=== PATIENT | male | born 1960 | race Caucasian/White ===

== ENCOUNTER → 2021-07-12 15:15 | Outpatient (BNVA) | payer BC, SELFPAY | PROVIDERS: Visit Provider Family Medicine | DX: M10.9 Gout, unspecified (principal); L98.9 Disorder of the skin and subcutaneous tissue, unspecified | CPT/HCPCS: 80053; 84550; 85025 ==

== ENCOUNTER 2022-12-03 23:49 | Emergency (ER) | payer BC, SELFPAY ==
[2022-12-03 23:52] VITALS: BP 178/95; PULSE 79; RESP 22; TEMP 36.8; O2SAT 94; BMI 34.2
--- NOTE | 2022-12-04 00:01 | CTR_ITS ---
PROCEDURE INFORMATION: Exam: CT Head Without Contrast Exam date and time: 12/04/2022 12:10 AM Age: 62 years old Clinical indication: Stroke-like symptoms; Dizziness/giddiness; Lt upper extremity weakness; Additional info: Severe dizziness with left upper ext weakness. Unknown last well time. TECHNIQUE: Imaging protocol: Computed tomography of the head without contrast. Radiation optimization: All CT scans at this facility use at least one of these dose optimization techniques: automated exposure control; mA and/or kV adjustment per patient size (includes targeted exams where dose is matched to clinical indication); or iterative reconstruction. Other technique: STROKE PROTOCOL was implemented. REPORTING DATA: Count of CT and Cardiac NM exams in prior 12 months: This patient has received 0 known CTs and 0 known cardiac nuclear medicine studies in the 12 months prior to the current study. COMPARISON: No relevant prior studies available. RADIATION DOSE METRICS: Total DLP (mGy-cm): 1138.88 FINDINGS: Brain: No focal hemorrhage or midline shift is identified. Right occipital CVA measures up to about 5.4 cm. Left cerebellar CVA measures up to about 5.1 cm. The right globus pallidus area near the internal capsule also contains a hypodense infarct measuring about 2.9 cm. The ventricles and parenchyma show moderate atrophy and chronic bicerebral white matter ischemic change. Cerebral ventricles: No ventriculomegaly or evidence of hydrocephalus. Paranasal sinuses: No evidence of acute sinusitis. Mastoid air cells: Visualized mastoid air cells are well aerated. Bones/joints: No displaced skull fracture is noted. Soft tissues: Unremarkable. Vasculature: Diffuse vascular calcifications are present. CT/CT head thrombolytic [id number] IMPRESSION: 1. Right basal ganglia area/internal capsule acute or subacute stroke. 2. Acute or subacute posterior circulation left cerebellar and right occipital strokes. No focal acute or dense hemorrhage. Advise MRI. 3. Moderate age-related changes. ASSESSMENT: ASPECTS ([place] Stroke Program Early CT Score) is 8.
--- NOTE | 2022-12-04 00:01 | CTR_ITS ---
PROCEDURE INFORMATION: Exam: CTA Head With Contrast, Arteriography Exam date and time: 12/04/2022 12:15 AM Age: 62 years old Clinical indication: Stroke-like symptoms; Dizziness/giddiness; Lt upper extremity weakness TECHNIQUE: Imaging protocol: Computed tomographic angiography of the head with contrast. Exam focused on the arteries. 3D rendering (Not supervised by radiologist): MIP and/or 3D reconstructed images were created by the technologist. Radiation optimization: All CT scans at this facility use at least one of these dose optimization techniques: automated exposure control; mA and/or kV adjustment per patient size (includes targeted exams where dose is matched to clinical indication); or iterative reconstruction. Contrast material: OMNI 350; Contrast volume: 100 ml; Contrast route: INTRAVENOUS (IV); REPORTING DATA: Count of CT and Cardiac NM exams in prior 12 months: This patient has received 0 known CTs and 0 known cardiac nuclear medicine studies in the 12 months prior to the current study. COMPARISON: CT head thrombolytic [id number] 12/04/2022 12:10 AM RADIATION DOSE METRICS: Total DLP (mGy-cm): 1138.88 FINDINGS: ANTERIOR CIRCULATION: Right internal carotid artery: Intracranial segment is patent with no significant stenosis. No aneurysm. Right middle cerebral artery: No occlusion or significant stenosis. No aneurysm. Right anterior cerebral artery: No occlusion or significant stenosis. No aneurysm. Left internal carotid artery: Intracranial segment is patent with no significant stenosis. No aneurysm. Left middle cerebral artery: No occlusion or significant stenosis. No aneurysm. Left anterior cerebral artery: No occlusion or significant stenosis. No aneurysm. POSTERIOR CIRCULATION: Right vertebral artery: No occlusion or significant stenosis. No aneurysm. Left vertebral artery: Is patent distally, which may be due to retrograde flow or recollateralized flow. See below neck CTA report. Basilar artery: No occlusion or significant stenosis. No aneurysm. The AICA, PICA, and SCA vessels are not well seen. Right posterior cerebral artery: Occlusion of right P2 segment. Left posterior cerebral artery: No occlusion or significant stenosis. No aneurysm. Brain: No focal hemorrhage or midline shift identified. Cerebral ventricles: No evidence of ventriculomegaly or hydrocephalus. The ventricles seem age-appropriate. Bones/joints: Unremarkable. No acute fracture. Soft tissues: Unremarkable. PROCEDURE INFORMATION: Exam: CTA Neck With Contrast Exam date and time: 12/04/2022 12:15 AM Age: 62 years old Clinical indication: Stroke-like symptoms; Dizziness/giddiness; Lt upper extremity weakness TECHNIQUE: Imaging protocol: Computed tomographic angiography of the neck with contrast. 3D rendering (Not supervised by radiologist): MIP and/or 3D reconstructed images were created by the technologist. Radiation optimization: All CT scans at this facility use at least one of these dose optimization techniques: automated exposure control; mA and/or kV adjustment per patient size (includes targeted exams where dose is matched to clinical indication); or iterative reconstruction. Contrast material: OMNI 350; Contrast volume: 100 ml; Contrast route: INTRAVENOUS (IV); REPORTING DATA: Count of CT and Cardiac NM exams in prior 12 months: This patient has received 0 known CTs and 0 known cardiac nuclear medicine studies in the 12 months prior to the current study. COMPARISON: CT head thrombolytic [id number] 12/04/2022 12:10 AM RADIATION DOSE METRICS: Total DLP (mGy-cm): 1138.88 FINDINGS: Right common carotid artery: No stenosis. No dissection or occlusion. Right internal carotid artery: No stenosis of the extracranial segment. No dissection or occlusion. Right external carotid artery: No occlusion or high-grade stenosis identififed. Left common carotid artery: No stenosis. No dissection or occlusion. Left internal carotid artery: No stenosis of the extracranial segment. No dissection or occlusion. Left external carotid artery: No occlusion or high-grade stenosis identififed. Right vertebral artery: The right vertebral artery is patent in the cervical region. Left vertebral artery: There is no flow seen along most of left vertebral artery. Thyroid: Few hypodense thyroid nodules measure up to about 1.3 cm. Soft tissues: No significant soft tissue swelling or other acute finding noted. Bones/joints: No acute fracture. The C1 posterior arch shows congenital nonunion. Mild diffuse cervical degenerative change. CT/CT angio headneck* [id number] IMPRESSION: 1. 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 2. The left vertebral artery is patent distally, which may be due to retrograde flow or recollateralized flow. Along its cervical course, it appears occluded. See below neck CTA report. IMPRESSION: 1. Concern for left vertebral artery diffuse occlusion. 2. Otherwise, no acute neck arterial finding visualized. 3. A few chronic findings above. 4. Call to provider has been initiated. COMMENTS: Consistent with the [employer]'s Incidental Findings Committee white paper (J Am Karian Radiol 2015): In patients aged 35 years and older with an incidental thyroid nodule equal to or greater than 1.[address], MRI or extrathyroidal US, further evaluation with dedicated thyroid US is recommended for patients with normal life expectancy and without comorbidities. For smaller nodules without suspicious features, no further evaluation or follow up is recommended. REFERENCES: NASCET CRITERIA. The degree of stenosis in the cervical segment of the internal carotid artery is based on NASCET criteria. Normal is no stenosis. Mild is less than 50% stenosis. Moderate is 50-69% stenosis. Severe is 70% to 99% stenosis. Total occlusion is no detectable patent lumen.
--- NOTE | 2022-12-04 00:01 | ECG_ITS ---
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 Measurements Intervals [place] Rate: 89 P: 46 NM: 132 QRS: -4 QRSD: 105 T: 74 QT: 356 QTc: 434 Interpretive Statements SINUS RHYTHM POSSIBLE LEFT ATRIAL ENLARGEMENT [-0.1mV P-WAVE IN V1/V2] NONSPECIFIC T-WAVE ABNORMALITY Compared to ECG 12/04/2022 00:26:05 No significant changes Electronically Signed On 12-04-2022 21:12:18 CDT by Fabiola Oh M.D. [email or web address] system [id number]
[2022-12-04] MEDS: iohexol 350 mg/mL 500 mL Btl (per mL) IV (00:11)
[2022-12-04 00:13] LABS: Glucose Point of Care 117 mg/dL (70-110)
[2022-12-04 00:15] LABS: Basophils % 0.1 %; Hematocrit 52.3 % (42.0-52.0); Hemoglobin 17.7 g/dL (11.7-16.6); Lymphocytes # 0.9 10^3/uL (0.8-4.8); Lymphocytes % 4.9 %; Mean Corpuscular HGB Conc 33.8 g/dL (30.0-36.0); Mean Corpuscular Hemoglobin 29.7 pg (28.0-34.0); Mean Corpuscular Volume 87.9 fl (80-94); Mean Platelet Volume 9.5 fL (7.4-10.4); Monocytes # 1.2 10^3/uL (0.2-0.9); Monocytes % 6.5 %; Neutrophils # 16.88 10^3/uL (1.8-7.7); Nucleated Red Blood Cells % 0 %; Platelet Count 218 10^3/cmm (130-400); Red Blood Count 5.95 10^6/uL (4.1-5.3); White Blood Count 19.2 10^3/uL (4.0-10.0)
--- NOTE | 2022-12-04 00:26 | ECG_ITS ---
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 Measurements Intervals [place] Rate: 89 P: 53 CT: 127 QRS: -1 QRSD: 99 T: 75 QT: 362 QTc: 441 Interpretive Statements SINUS RHYTHM POSSIBLE LEFT ATRIAL ENLARGEMENT [-0.1mV P-WAVE IN V1/V2] NONSPECIFIC T-WAVE ABNORMALITY No previous ECG available for comparison Electronically Signed On 12-04-2022 21:12:28 CDT by Fabiola Oh M.D. [id number]
[2022-12-04 00:28] VITALS: BP 173/91; PULSE 88; RESP 20; O2SAT 93
[2022-12-04 00:28] LABS: INR 1.08 (0.8-1.2)
[2022-12-04 00:30] LABS: Partial Thromboplastin Time 21.9 SECONDS (23.9-36.7)
[2022-12-04] MEDS: ondansetron 2 mg/ML SDV 2 mL 4 MG IVP (00:37)
[2022-12-04 00:41] LABS: Troponin(5th) Baseline 9 ng/L (0-15)
[2022-12-04 00:42] LABS: Alanine Aminotransferase 27 U/L (0-41); Albumin Level 4.2 g/dL (3.5-5.2); Alkaline Phosphatase 59 U/L (40-130); Anion Gap 17.2 (5-19); Aspartate Amino Transferase 22 U/L (0-40); Blood Urea Nitrogen 17 mg/dL (8-23); Calcium 9.4 mg/dL (8.5-10.5); Carbon Dioxide 26 mmol/L (22-29); Chloride 96 mmol/L (98-107); Globulin 3.3 g/dL (1.3-4.6); Glomerular Filtration Rate 86.1 mL/min (90-130); Glucose 131 mg/dL (65-115); Osmolality Calculated 283 mOsm/kg (285-295); Potassium 4.2 mmol/L (3.5-5.1); Sodium 135 mmol/L (136-145); Total Bilirubin 0.7 mg/dL (0.15-1.2); Total Protein 7.5 g/dL (6.6-8.7)
--- NOTE | 2022-12-04 00:45 | ED_ITS ---
HPI - Neuro Symptoms/Deficit General: Chief Complaint: Neuro Symptoms/Deficit Stated Complaint: SEIZURE Time Seen by Provider: 12/03/22 23:53 Source: patient and EMS Mode of arrival: EMS Limitations: no limitations History of Present Illness: 62-year-old male who is here with EMS stated 3 PM today he started having left- sided weakness he states he has not been able to walk due to left-sided weakness he states has been very dizzy is felt like the room is been spinning. He denies any chest pain he has had some mild headaches. No vomiting or diarrhea Associated symptoms: Deny chest pain, headache(s), nausea or vomiting Review of Systems Const: Denies: fever(s), chills, body aches or change in appetite Eyes: Denies: blurry vision or eye discomfort ENMT: Denies: throat pain or dental pain Card: Denies: chest pain Resp: Denies: dyspnea GI: Denies: abdominal pain, nausea, vomiting or diarrhea : Denies: dysuria Musc: Denies: neck pain or back pain Skin/Breast: Denies: rash Neuro: Reports: numbness in extremities, weakness in extremities, lack of coordination, difficulty walking and dizziness; Denies: headache(s) PFSH ED PFSH: Medical History Gout Skin Lesion Ventral hernia Social History Smoking and tobacco status: never smoked Alcohol intake: current NIH stroke score NIHSS: Level Of Consciousness - 1a: 0 Level Of Consciousness Questions - 1b: Both Correct Level Of Consciousness Commands - 1c: Both Correct Best Gaze - 2: Partial Gaze Palsy Visual Moreno - 3: Complete Hemianopia Facial Palsy - 4: Normal Motor Arm Right - 5: No Drift Motor Arm Left - 5: Effort Against [place] Motor Leg Right - 6: No Drift Motor Leg Left - 6: Effort Against [place] Limb Ataxia - 7: Absent Sensory - 8: Mild To Moderate Loss Best Language - 9: No Aphasia Dysarthia - 10: Normal Extinction And Inattention - 11: 0 Score: Total Score: 8 Physical Exam Const: COMMON NORMALS: patient oriented x3 GENERAL APPEARANCE: ill appearing HENMT: COMMON NORMALS: normocephalic and atraumatic HEAD & SCALP: normocephalic and atraumatic Eye: COMMON NORMALS: Equal, round and reactive pupils present and EOMs intact bilaterally PUPIL: Yes Equal, round and reactive pupils present OTHER: Complete hemianopsia visual deficits to the left side of both eyes Neck/C-Spine: COMMON NORMALS: full ROM and supple Chest: COMMONS NORMALS: normal inspection of the chest and normal palpation of entire chest wall Resp: COMMON NORMALS: normal respiratory effort, No retractions, No use of accessory muscles and clear to auscultation bilaterally AUSCULTATION: clear to auscultation bilaterally Cardio: COMMON NORMALS: regular rate, regular rhythm and No murmurs present (Cardio) RATE: regular rate RHYTHM: regular rhythm GI: COMMON NORMALS: Normal to inspection, nondistended, normoactive bowel sounds present, Soft to palpation, non-tender and no masses PALPATION: Yes Soft to palpation Extremity: COMMON NORMALS: normal to inspection and full ROM Neuro: COMMON NORMALS: patient oriented x3 OTHER: Decreased sensation and strength to the left upper and lower extremity Psych: COMMON NORMALS: mental status grossly normal, Normal thought process present and cooperative THOUGHT PROCESS: Normal thought process present Skin: COMMON NORMALS: no rashes or lesions noted and no wounds GENERAL SKIN EXAM: no rashes or lesions noted Course Vital Signs: Vital signs: Vital Signs Temperature 98.2 F 12/03/22 23:52 Pulse Rate 79 12/03/22 23:52 Respiratory Rate 22 H 12/03/22 23:52 Blood Pressure 178/95 12/03/22 23:52 Pulse Oximetry 94 12/03/22 23:52 Oxygen Delivery Me thod Room Air 12/03/22 23:52 MDM - Neuro Symptoms/Deficit Medical Decision Making Patient presents here with a CVA. He does have a thrombus on his CTA. Patient had unknown downtime he had stated it was 3 PM room today but family states that he was acting abnormal the day before I have spoke to the neurologist at [facility] he did recommend transfer for further imaging to see if he is a thrombectomy candidate. He is not a tPA candidate due to timing Medical Records I reviewed the patient's medical records. Lab Data I reviewed the patient's lab results. 12/04/22 00:07 12/04/22 00:[address] 12/04/22 00:01 IMPRESSION: 1. Right basal ganglia area/internal capsule acute or subacute stroke. 2. Acute or subacute posterior circulation left cerebellar and right occipital strokes. No focal acute or dense hemorrhage. Advise MRI. 3. Moderate age-related changes. ASSESSMENT: ASPECTS ([place] Stroke Program Early CT Score) is 8. ADDENDUM: 12/04/22 0035 THIS REPORT CONTAINS FINDINGS THAT MAY BE CRITICAL TO PATIENT CARE. The findings were verbally communicated via telephone conference at 12:33 AM CDT on 12/04/2022 with FRENCH POOL. The findings were acknowledged and understood. Head/Neck CTA 12/04/22 00:01 IMPRESSION: 1. 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 2. The left vertebral artery is patent distally, which may be due to retrograde flow or recollateralized flow. Along its cervical course, it appears occluded. See below neck CTA report. IMPRESSION: 1. Concern for left vertebral artery diffuse occlusion. 2. Otherwise, no acute neck arterial finding visualized. 3. A few chronic findings above. 4. Call to provider has been initiated. COMMENTS: Consistent with the [employer]'s Incidental Findings Committee white paper (J Am Karina Radiol 2015): In patients aged 35 years and older with an incidental thyroid nodule equal to or greater than 1.[address], MRI or extrathyroidal US, further evaluation with dedicated thyroid US is recommended for patients with normal life expectancy and without comorbidities. For smaller nodules without suspicious features, no further evaluation or follow up is recommended. REFERENCES: NASCET CRITERIA. The degree of stenosis in the cervical segment of the internal carotid artery is based on NASCET criteria. Normal is no stenosis. Mild is less than 50% stenosis. Moderate is 50-69% stenosis. Severe is 70% to 99% stenosis. Total occlusion is no detectable patent lumen. ADDENDUM: 12/04/[address] Bowie has received reports with no concerns. Laboratory Results WBC 19.2 10^3/uL (4.0-10.0) H 12/04/22 00:07 RBC 5.95 10^6/uL (4.1-5.3) H 12/04/22 00:07 Hgb 17.7 g/dL (11.7-16.6) H 12/04/22 00:07 Hct 52.3 % (42.0-52.0) H 12/04/22 00:07 MCV 87.9 fl (80-94) 12/04/22 00:07 MCH 29.7 pg (28.0-34.0) 12/04/22 00:07 MCHC 33.8 g/dL (30.0-36.0) 12/04/22 00:07 RDW 14.0 % (12.1-15.1) 12/04/22 00:07 Plt Count 218 10^3/cmm (130-400) 12/04/22 00:07 MPV 9.5 fL (7.4-10.4) 12/04/22 00:07 Neut % (Auto) 88.0 % 12/04/22 00:07 Lymph % (Auto) 4.9 % 12/04/22 00:07 Karnes % (Auto) 6.5 % 12/04/22 00:07 Eos % (Auto) 0.0 % 12/04/22 00:07 Baso % (Auto) 0.1 % 12/04/22 00:07 Neut # (Auto) 16.88 10^3/uL (1.8-7.7) H 12/04/22 00:07 Lymph # (Auto) 0.9 10^3/uL (0.8-4.8) 12/04/22 00:07 Karnes # (Auto) 1.2 10^3/uL (0.2-0.9) H 12/04/22 00:07 Eos # (Auto) 0.0 10^3/uL (0.0-0.8) 12/04/22 00:07 Baso # (Auto) 0.0 10^3/uL (0.0-0.1) 12/04/22 00:07 Nucleated RBC % (auto) 0 % 12/04/22 00:07 Nucleated RBCs # 0.0 /100WBC 12/04/22 00:07 PT 14.30 SECONDS (12.1-14.9) 12/04/22 00:07 INR 1.08 (0.8-1.2) 12/04/22 00:07 APTT 21.9 SECONDS (23.9-36.7) L 12/04/22 00:07 Sodium 135 mmol/L (136-145) L 12/04/22 00:07 Potassium 4.2 mmol/L (3.5-5.1) 12/04/22 00:07 Chloride 96 mmol/L (98-107) L 12/04/22 00:07 Carbon Dioxide 26 mmol/L (22-29) 12/04/22 00:07 Anion Gap 17.2 (5-19) 12/04/22 00:07 BUN 17 mg/dL (8-23) 12/04/22 00:07 Creatinine 0.9 mg/dL (0.7-1.2) 12/04/22 00:07 GFR Calculation 86.1 mL/min (90-130) L 12/04/22 00:07 Glucose 131 mg/dL (65-115) H 12/04/22 00:07 POC Glucose 117 mg/dL (70-110) H 12/04/22 00:03 Calculated Osmolality 283 mOsm/kg (285-295) L 12/04/22 00:07 Calcium 9.4 mg/dL (8.5-10.5) 12/04/22 00:07 Total Bilirubin 0.7 mg/dL (0.15-1.2) 12/04/22 00:07 AST 22 U/L (0-40) 12/04/22 00:07 ALT 27 U/L (0-41) 12/04/22 00:07 Alkaline Phosphatase 59 U/L (40-130) 12/04/22 00:07 Troponin T Baseline 9 ng/L (0-15) 12/04/22 00:07 Total Protein 7.5 g/dL (6.6-8.7) 12/04/22 00:07 Albumin 4.2 g/dL (3.5-5.2) 12/04/22 00:07 Globulin 3.3 g/dL (1.3-4.6) 12/04/22 00:07 Critical Care Time Critical Care Time: Critical Care Time: Yes Total Critical Care Time: 40 Attestation: The high probability of a clinically significant, sudden or life threatening deterioration of the patient's cva system(s) required my full and direct attention, intervention and personal management. The critical care time is as shown. This time is in addition to time spent performing any reported procedures but includes the following: [x] Data and vital sign review and interpretation [x] Patient assessment, examination and intervention [x] Documentation [x] Medication orders and management Discharge Plan Discharge Patient Disposition: Xfer Short-Term Hosp Clinical Impression: Cerebrovascular accident Condition: Stable Prescriptions: No Action ibuprofen [IBU] 400 mg tablet 400 mg PO Q6H allopurinol 100 mg tablet 100 mg PO DAILY Qty: 90 0RF Coding Level of Care Code ED Collections Attorney for Tonio Al
[2022-12-04 01:00] VITALS: BP 182/90; PULSE 87; RESP 18; O2SAT 90
[2022-12-04] MEDS: aspirin 300 mg Supp PR (01:21)
[2022-12-04 01:22] LABS: Creatine Phosphokinase 234 U/L (39-308)
[2022-12-04 01:30] VITALS: BP 148/100; PULSE 92; RESP 16; O2SAT 95
[2022-12-04 01:36] LABS: Urine Appearance Clear (CLEAR); Urine Color Yellow (Yellow); pH Urine 6.5 (5-7)
[2022-12-04 01:37] LABS: Add Urine Microscopic? YES; Bilirubin Urine 1+ (Negative); Blood Urine Trace (Negative); Glucose Urine UA Norm (Normal); Ketones Urine 2+ (Negative); Leukocyte Esterase Urine Trace (Negative); Nitrate Urine Positive (Negative); Protein Urine 1+ (Negative); Urobilinogen Urine 1 mg/dL (Negative)
[2022-12-04 01:38] LABS: RBC Urine 0-4 /hpf (0-2); WBC Urine 0-4 /hpf (0-5)
[2022-12-04 01:39] LABS: Bacteria Urine TRACE /hpf; Squamous Epithelial Cell Urine 0-4 /hpf (0-5)
[2022-12-04 01:42] LABS: Amphetamines Screen Urine Negative (Negative); Barbiturates Screen Urine Negative (Negative); Benzodiazepines Screen Urine Negative (Negative); Cocaine Screen Urine Negative (Negative); Opiate Screen Urine Negative (Negative); PCP Screen Urine Negative (Negative); THC Screen Urine Negative (Negative)
[2022-12-04] MEDS: LORazepam 2 mg/mL INJ 1 mL 0.5 MG IVP ×2 (01:46→01:55)
== END 2022-12-04 02:10 | disposition short-term general hospital (02) ==
PROVIDERS: Emergency Provider Emergency Medicine
DX: I63.9 Cerebral infarction, unspecified (principal)
CPT/HCPCS: 36416; 51702; 70450; 70496; 70498; 80053; 80306; 81001; 82550; 82962; 84484; 85025; 85610; 85730; 93005; 96374; 96376; 99285; J2060; J2405; Q9967

== ENCOUNTER 2022-12-28 12:15 | Emergency (ER) | payer BC, SELFPAY ==
[2022-12-28 12:22] VITALS: BP 135/84; PULSE 76; RESP 18; TEMP 36.9; O2SAT 97; BMI 28.8
--- NOTE | 2022-12-28 12:50 | W.ED.WEAKNES ---
HPI - Weakness General: Chief complaint: Weakness Stated complaint: increased weakness Time Seen by Provider: 12/28/22 12:34 History of Present Illness: [facility] and felt weaker than normal. Patient states he normally gets this way when he is hungry after he eats he gets better. Patient ate some hamburger cracker this morning and to get little better but then started getting worse again. [facility] because he just recently had a stroke and went to [facility] for treatment. Patient states the weakness is having now is global weakness and not focal weakness. Patient denies any other concerns or considerations at this time. Review of Systems General: Reports: 10 or more systems reviewed and unremarkable except in HPI and below PFSH ED PFSH: Medical History Gout Skin Lesion Ventral hernia Social History Smoking and tobacco status: never smoked Alcohol intake: current Physical Exam Const: COMMON NORMALS: no acute distress, average body habitus, patient oriented x3, no limitations, healthy appearing, alert and well nourished HENMT: COMMON NORMALS: normocephalic, atraumatic, hearing grossly normal bilaterally, external ears normal, Normal external nose present and moist oral mucous membranes HEAD & SCALP: normocephalic and atraumatic NOSE: Normal external nose present EXTERNAL EAR: Yes external ears normal Eye: COMMON NORMALS: Equal, round and reactive pupils present, EOMs intact bilaterally, conjunctivae normal and no scleral icterus CONJUNCTIVA: Yes conjunctivae normal PUPIL: Yes Equal, round and reactive pupils present Neck/C-Spine: COMMON NORMALS: full ROM, no lymphadenopathy, supple, no meningeal signs, no JVD and Thyroid normal THYROID: Thyroid normal Chest: COMMONS NORMALS: normal inspection of the chest and normal palpation of entire chest wall Resp: COMMON NORMALS: normal respiratory effort, No retractions, No use of accessory muscles and clear to auscultation bilaterally AUSCULTATION: clear to auscultation bilaterally Cardio: COMMON NORMALS: no JVD, regular rate, regular rhythm, S1 normal heart sound present, S2 normal heart sound present, No gallops present (Cardio), No clicks present (Cardio), No murmurs present (Cardio) and No rub (Cardio) RATE: regular rate RHYTHM: regular rhythm HEART SOUNDS: S1 normal heart sound present and S2 normal heart sound present GI: COMMON NORMALS: Normal to inspection, nondistended, normoactive bowel sounds present, Soft to palpation, non-tender, No hepatosplenomegaly present and no masses PALPATION: Yes Soft to palpation and Yes No hepatosplenomegaly present : COMMON NORMALS: Yes no CVA tenderness BLADDER/KIDNEY EXAM: Yes no CVA tenderness Back/Pelvis: COMMON NORMALS: no CVA tenderness Neuro: COMMON NORMALS: patient oriented x3 SENSORIUM/ORIENTATION: Yes alert MENINGEAL SIGNS: Yes no meningeal signs Course Vital Signs: Vital signs: Vital Signs Temperature 98.4 F 12/28/22 12:22 Pulse Rate 76 12/28/22 12:22 Respiratory Rate 18 12/28/22 12:22 Blood Pressure 135/84 12/28/22 12:22 Pulse Oximetry 97 12/28/22 12:22 Oxygen Delivery Me thod Room Air 12/28/22 12:22 MDM - Weakness Medical Decision Making Patient presents to the ER with complaints of generalized weakness. States it happens when he does not eat very good. Patient stated this happened this morning and he ate some peanut butter and crackers and started get a little better but then got little worse. Patient was given p.o. butter and crackers in ER as well as a food tray which patient ate patient is feeling better now. Work which included blood and urine was obtained which is essentially benign. Since patient is feeling better this is more likely related to poor oral intake. Patient will be discharged home. Patient should eat 3 square meals a day along with snacks. Differential Diagnosis Unlikely acute myocardial infarction, anemia, hypoglycemia, hypothyroidism, rhabdomyolysis, sepsis or dehydration Medical Records I reviewed the patient's medical records. Lab Data I reviewed the patient's lab results. 12/28/22 12:53 12/28/22 12:53 Laboratory Results WBC 11.3 10^3/uL (4.0-10.0) H 12/28/22 12:53 RBC 5.56 10^6/uL (4.1-5.3) H 12/28/22 12:53 Hgb 16.3 g/dL (11.7-16.6) 12/28/22 12:53 Hct 49.3 % (42.0-52.0) 12/28/22 12:53 MCV 88.7 fl (80-94) 12/28/22 12:53 MCH 29.3 pg (28.0-34.0) 12/28/22 12:53 MCHC 33.1 g/dL (30.0-36.0) 12/28/22 12:53 RDW 13.0 % (12.1-15.1) 12/28/22 12:53 Plt Count 255 10^3/cmm (130-400) 12/28/22 12:53 MPV 8.8 fL (7.4-10.4) 12/28/22 12:53 Neut % (Auto) 70.3 % 12/28/22 12:53 Lymph % (Auto) 19.6 % 12/28/22 12:53 [place] % (Auto) 8.3 % 12/28/22 12:53 Eos % (Auto) 1.0 % 12/28/22 12:53 Baso % (Auto) 0.4 % 12/28/22 12:53 Neut # (Auto) 7.92 10^3/uL (1.8-7.7) H 12/28/22 12:53 Lymph # (Auto) 2.2 10^3/uL (0.8-4.8) 12/28/22 12:53 [place] # (Auto) 0.9 10^3/uL (0.2-0.9) 12/28/22 12:53 Eos # (Auto) 0.1 10^3/uL (0.0-0.8) 12/28/22 12:53 Baso # (Auto) 0.0 10^3/uL (0.0-0.1) 12/28/22 12:53 Nucleated RBC % (auto) 0 % 12/28/22 12:53 Nucleated RBCs # 0.0 /100WBC 12/28/22 12:53 Sodium 141 mmol/L (136-145) 12/28/22 12:53 Potassium 4.2 mmol/L (3.5-5.1) 12/28/22 12:53 Chloride 102 mmol/L (98-107) 12/28/22 12:53 Carbon Dioxide 28 mmol/L (22-29) 12/28/22 12:53 Anion Gap 15.2 (5-19) 12/28/22 12:53 BUN 15 mg/dL (8-23) 12/28/22 12:53 Creatinine 0.7 mg/dL (0.7-1.2) 12/28/22 12:53 GFR Calculation 115.0 mL/min (90-130) 12/28/22 12:53 Glucose 83 mg/dL (65-115) 12/28/22 12:53 Calculated Osmolality 292 mOsm/kg (285-295) 12/28/22 12:53 Calcium 9.3 mg/dL (8.5-10.5) 12/28/22 12:53 Total Bilirubin 0.8 mg/dL (0.15-1.2) 12/28/22 12:53 AST 30 U/L (0-40) 12/28/22 12:53 ALT 68 U/L (0-41) H 12/28/22 12:53 Alkaline Phosphatase 74 U/L (40-130) 12/28/22 12:53 Total Protein 6.6 g/dL (6.6-8.7) 12/28/22 12:53 Albumin 3.8 g/dL (3.5-5.2) 12/28/22 12:53 Globulin 2.8 g/dL (1.3-4.6) 12/28/22 12:53 TSH 0.81 uIU/mL (0.27-4.20) 12/28/22 12:53 Urine Color Yellow (Yellow) 12/28/22 14:01 Urine Appearance Clear (CLEAR) 12/28/22 14:01 Urine pH 7 (5-7) 12/28/22 14:01 Ur Specific [place] 1.005 (1.005-1.030) 12/28/22 14:01 Urine Protein Trace (Negative) 12/28/22 14:01 Urine Glucose (UA) Norm (Normal) 12/28/22 14:01 Urine Ketones 1+ (Negative) H 12/28/22 14:01 Urine Blood Neg (Negative) 12/28/22 14:01 Urine Nitrate Negative (Negative) 12/28/22 14:01 Urine Bilirubin Neg (Negative) 12/28/22 14:01 Urine Urobilinogen Norm mg/dL (Negative) 12/28/22 14:01 Ur Leukocyte Esterase Trace (Negative) H 12/28/22 14:01 Urine RBC 0-4 /hpf (0-2) H 12/28/22 14:01 Urine WBC 0-4 /hpf (0-5) H 12/28/22 14:01 Ur Squamous Epith Cells 0-4 /hpf (0-5) H 12/28/22 14:01 Amorphous Sediment Not Reportable 12/28/22 14:01 Urine Bacteria None /hpf (NONE) 12/28/22 14:01 Urine Mucus 2+ /hpf 12/28/22 14:01 Discharge Plan Discharge Patient Disposition: Home Clinical Impression: Episode of generalized weakness Condition: Stable Prescriptions: No Action ibuprofen [IBU] 400 mg tablet 400 mg PO Q6H atorvastatin 40 mg Tablet 40 mg PO QPM acetaminophen 325 mg Tablet 650 mg PO QID PRN (Reason: Pain) Aspir-81 81 mg Tablet,Delayed Release (Dr/Ec) 81 mg PO DAILY meclizine 25 mg Tablet 25 mg PO DAILY meclizine 25 mg Tablet 25 mg PO DAILY PRN (Reason: Dizziness) fluoxetine 20 mg Tablet 20 mg PO DAILY melatonin 1 mg Tablet 1 mg PO QPM allopurinol 100 mg tablet 100 mg PO DAILY PRN (Reason: gout) Discharge Orders: Discharge ED (Routine); Ordered 12/28/22 Ordered By: rAmando Orourke Referrals: Desiree Rees MD [Primary Care Provider] - 1 week Patient Instructions: Weakness (Generalized) Activity Restrictions/Additional Instructions: All your lab work in the ER was essentially negative. Since her symptoms improved after eating this may be related to diet more than anything. Please try to eat 3 regular meals throughout the day along with snacks in between them to keep your blood sugar and keep your energy level up. Please follow-up with your family practice doctor in the next 7 to 10 days for further evaluation and treatment. Coding Level of Care Code ED [place] [employer] for [facility]
[2022-12-28 12:59] LABS: Basophils % 0.4 %; Eosinophils # 0.1 10^3/uL (0.0-0.8); Hematocrit 49.3 % (42.0-52.0); Hemoglobin 16.3 g/dL (11.7-16.6); Lymphocytes # 2.2 10^3/uL (0.8-4.8); Lymphocytes % 19.6 %; Mean Corpuscular HGB Conc 33.1 g/dL (30.0-36.0); Mean Corpuscular Hemoglobin 29.3 pg (28.0-34.0); Mean Corpuscular Volume 88.7 fl (80-94); Mean Platelet Volume 8.8 fL (7.4-10.4); Monocytes # 0.9 10^3/uL (0.2-0.9); Monocytes % 8.3 %; Neutrophils # 7.92 10^3/uL (1.8-7.7); Neutrophils % 70.3 %; Nucleated Red Blood Cells % 0 %; Platelet Count 255 10^3/cmm (130-400); Red Blood Count 5.56 10^6/uL (4.1-5.3); White Blood Count 11.3 10^3/uL (4.0-10.0)
[2022-12-28 13:26] LABS: Alanine Aminotransferase 68 U/L (0-41); Albumin Level 3.8 g/dL (3.5-5.2); Alkaline Phosphatase 74 U/L (40-130); Anion Gap 15.2 (5-19); Aspartate Amino Transferase 30 U/L (0-40); Blood Urea Nitrogen 15 mg/dL (8-23); Calcium 9.3 mg/dL (8.5-10.5); Carbon Dioxide 28 mmol/L (22-29); Chloride 102 mmol/L (98-107); Globulin 2.8 g/dL (1.3-4.6); Glucose 83 mg/dL (65-115); Osmolality Calculated 292 mOsm/kg (285-295); Potassium 4.2 mmol/L (3.5-5.1); Sodium 141 mmol/L (136-145); Thyroid Stimulating Hormone 0.81 uIU/mL (0.27-4.20); Total Bilirubin 0.8 mg/dL (0.15-1.2); Total Protein 6.6 g/dL (6.6-8.7)
[2022-12-28 14:21] LABS: Specific Gravity, Urine 1.005 (1.005-1.030); Urine Appearance Clear (CLEAR); Urine Color Yellow (Yellow); pH Urine 7 (5-7)
[2022-12-28 14:22] LABS: Add Urine Microscopic? YES; Bilirubin Urine Neg (Negative); Blood Urine Neg (Negative); Glucose Urine UA Norm (Normal); Ketones Urine 1+ (Negative); Leukocyte Esterase Urine Trace (Negative); Nitrate Urine Negative (Negative); Protein Urine Trace (Negative); Urobilinogen Urine Norm (Negative)
[2022-12-28 14:23] LABS: Add Urine Culture? No; Mucus Urine 2+ /hpf; RBC Urine 0-4 /hpf (0-2); Squamous Epithelial Cell Urine 0-4 /hpf (0-5); WBC Urine 0-4 /hpf (0-5)
[2022-12-28 14:41] VITALS: BP 132/68; PULSE 78; RESP 16; O2SAT 98
== END 2022-12-28 14:49 | disposition home or self-care (01) ==
PROVIDERS: Emergency Provider Emergency Medicine; PCP Family Medicine
DX: R53.1 Weakness (principal); Z79.82 Long term (current) use of aspirin
CPT/HCPCS: 80053; 81001; 84443; 85025; 99283

== ENCOUNTER → 2023-04-23 15:26 | Outpatient (BNVA) | payer MEDICAID, SELFPAY | PROVIDERS: PCP Family Medicine; Visit Provider Family Medicine | DX: E78.00 Pure hypercholesterolemia, unspecified (principal); I63.81 Other cerebral infarction due to occlusion or stenosis of small artery | CPT/HCPCS: 80053; 80061; 85025 ==

== ENCOUNTER → 2023-12-31 14:50 | Outpatient (BNVA) | payer BC, MEDICAID, SELFPAY | PROVIDERS: PCP Family Medicine; Visit Provider Family Medicine | DX: E78.00 Pure hypercholesterolemia, unspecified (principal) | CPT/HCPCS: 80053; 80061; 85025 ==

== ENCOUNTER → 2024-06-02 16:44 | Outpatient (BNVA) | payer SELFPAY | PROVIDERS: PCP Family Medicine; Visit Provider Family Medicine | DX: D75.1 Secondary polycythemia (principal) | CPT/HCPCS: 80053; 82728; 83540; 85025 ==

== ENCOUNTER → 2024-06-09 15:36 | Outpatient (BNVA) | payer SELFPAY | PROVIDERS: PCP Family Medicine; Visit Provider Family Medicine | DX: E83.119 Hemochromatosis, unspecified (principal) | CPT/HCPCS: 83550; 84466 ==